=== PATIENT | female | born 1960 | race Caucasian/White ===

== ENCOUNTER 2025-09-23 06:01 | Day surgery (SDC) | payer MEDICARE ==
--- NOTE | 2025-09-21 13:02 | EKG ---
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
[2025-09-21 13:14] LABS: IMMATURE GRANULOCYTE ABSOLUTE 0.01 K/uL (0-1); NUCLEATED RED BLOOD CELLS 0.0 % (0.0-0.19); PLATELET COUNT (AUTO) 226 K/uL (130-400); RED BLOOD CELL COUNT(AUTO) 4.16 MIL/uL (4.00-5.50); RED CELL DISTRIBUTION WIDTH 14.7 % (11.0-15.5); WHITE BLOOD COUNT (AUTO) 5.6 K/uL (4.8-10.8)
[2025-09-21 13:18] LABS: INR 2.9 (0.85-1.15)
[2025-09-21 13:24] LABS: CREATININE 0.7 mg/dL (0.5-1.0); GLOMERULAR FILTR. RATE CALC 95.0 mL/min (>90); GLUCOSE,RANDOM 98.0 mg/dL (70-105); SODIUM SERUM 140.0 mmol/L (136-145); UREA NITROGEN, BLOOD 15.0 mg/dL (7-18)
[2025-09-21 13:39] VITALS: BP 155/100; PULSE 83; RESP 17; TEMP 97.2
--- NOTE | 2025-09-21 16:01 | NUR ---
REPORT REPORTED COAGS TO DR Lilli LEYVA. RECEIVED ORDERS TO REPEAT INR ON WED AM AND REPORT LEVELS TO HER AROUND 7 AM.
[~2025-09-23] VITALS: Ht 182.9 cm; Wt 84.6 kg
[2025-09-23] VITALS (7 sets, daily range): BP systolic 116–148; BP diastolic 64–79; PULSE 69; RESP 15–16; TEMP 97.9
[~2025-09-23 06:01] MED LIST: ATEN25TA PO; CALC-866 PO; CITRACAL PO; DENO60DI SQ; EXEM25TA PO; LORA10CA PO; SOTALOL PO; VALS160T29 PO; VITA1CAP85 PO; WARF-57 PO
[2025-09-23] MEDS ORDERED: LIDOCAINE HCL 2% VISCOUS 15 ML UDCUP PO ONE (07:00)
[2025-09-23 07:05] LABS: INR 1.36 (0.85-1.15)
--- NOTE | 2025-09-23 07:07 | NUR ---
DR. Lilli LEYVA AWARE OF NEW INR OF 1.36
[2025-09-23] MEDS ORDERED: GLYCOPYRROLATE 0.2 MG/ML 5 ML VIAL ONE (07:19)
--- NOTE | 2025-09-23 07:43 | NUR ---
[facility] ABORTED AFTER SEVERAL ATTEMPTS.
--- NOTE | 2025-09-23 07:46 | NUR ---
PT AWAKE SPEAKING WITH DR. LEYVA. DR. LEYVA TELLING PT AND SPOUSE SHE WILL COORDINATE WITH DR. BETTENCOURT TO SCHEDULE PT FOR AN OUTPT [facility] WITH A PEDIATRIC SCOPE
--- NOTE | 2025-09-23 08:40 | NUR ---
BOTH PT AND SPOUSE GIVEN VERBAL AND WRITTEN DISCHARGE INSTRUCTIONS IV REMOVED SITE ASYMPTOMATIC. PT TAKEN OUT VIA WHEELCHAIR SPOUSE DRIVING
== END 2025-09-23 08:45 | disposition home or self-care (01) ==
LOC: DAH 06:01
PROVIDERS: ATTEND Student in an Organized Health Care Education/Training Program
DX: I48.91 Unspecified atrial fibrillation (principal); Z53.8 Procedure and treatment not carried out for other reasons; Z88.0 Allergy status to penicillin; I10 Essential (primary) hypertension; Z79.899 Other long term (current) drug therapy
CPT/HCPCS: 80048; 85025; 85610 ×2; 85730; 36415 ×2; 93005; A4223 ×3; J2704; J3490; A4620; A4215; A4222; A4221; A4663; A4216; A4606